=== PATIENT | male | born 1985 | race Caucasian/White ===

== ENCOUNTER 2017-05-07 13:21 | Emergency (ER) | payer BC ==
[2017-05-07 13:24] VITALS: RESP 18; TEMP 99; O2SAT 99
[2017-05-07 13:25] VITALS: BMI 29.6
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
[2017-05-07 14:51] LABS: ALB/GLOB RATIO 1.4 (1.1-1.8); ALKALINE PHOSPHATASE 50 U/L (38-126); ALT/SGPT 64 U/L (7-56); AST/SGOT 34 U/L (17-59); BLOOD UREA NITROGEN 11 mg/dL (7-21); CALCIUM 9.1 mg/dL (8.4-10.5); CARBON DIOXIDE 27 mmol/L (21-33); CHLORIDE 103 mmol/L (98-107); GFR AFRICAN-AMERICAN > 60; GLUCOSE,RANDOM 94 mg/dL (70-110); POTASSIUM 4.1 mmol/L (3.6-5.0); SODIUM 140 mmol/L (132-148); TOTAL PROTEIN 7.3 g/dL (5.8-8.3)
[2017-05-07 15:09] LABS: BASO # 0.03 K/mm3 (0.0-2.0); BASO % 0.4 % (0.0-3.0); EOS # 0.3 (0.0-0.7); EOS % 3.7 % (1.5-5.0); GRAN # 3.98 (1.4-6.5); GRAN % 52.5 % (50.0-68.0); HEMATOCRIT 43.1 % (42.0-52.0); LYMPH # 2.6 (1.2-3.4); LYMPH % 34.3 % (22.0-35.0); MEAN CELL VOLUME 83.7 fl (80.0-105.0); MEAN CORPUSCULAR HEMOGLOBIN 29.7 pg (25.0-35.0); MEAN CORPUSCULAR HGB CONC 35.5 g/dl (31.0-37.0); MEAN PLATELET VOLUME 9.7 fl (7.0-11.0); MONO # 0.7 (0.1-0.6); MONO % 9.1 % (1.0-6.0); WHITE BLOOD COUNT 7.6 10^3/ul (4.5-11.0)
[2017-05-07 15:25] LABS: URINE BILIRUBIN NEGATIVE (NEGATIVE); URINE BLOOD NEGATIVE (NEGATIVE); URINE GLUCOSE (UA) NEGATIVE (NEGATIVE); URINE KETONE NEGATIVE (NEGATIVE); URINE LEUKOCYTE ESTERASE NEGATIVE Leu/uL (NEGATIVE); URINE PROTEIN TRACE mg/dL (<30 mg/dL); URINE UROBILINOGEN 0.2 E.U./dL (<1 E.U./dL)
[2017-05-07 15:28] LABS: URINE COLOR YELLOW (YELLOW)
[2017-05-07 15:29] LABS: URINE APPEARANCE CLEAR (CLEAR)
[2017-05-07 15:44] LABS: URINE RBC 0 - 2 /hpf (0-2)
[2017-05-07 15:45] LABS: URINE BACTERIA FEW (NEG)
--- NOTE | 2017-05-07 16:23 | CARD ---
APPROVED REPORT EKG Measurement Heart [id number] <Conclusion> Normal sinus rhythm
--- NOTE | 2017-05-07 16:24 | RAD ---
HISTORY: pes eval COMPARISON: No prior. FINDINGS: LUNGS: No active pulmonary disease. PLEURA: No significant pleural effusion identified, no pneumothorax apparent. CARDIOVASCULAR: Normal. OSSEOUS STRUCTURES: No significant abnormalities. VISUALIZED UPPER ABDOMEN: Normal. OTHER FINDINGS: None. IMPRESSION: No active disease.
[2017-05-07] MEDS ORDERED: Acetylcysteine 12,000 MG in Dextrose 5% In Water 200 ML IVPB ONE (16:45)
[2017-05-07 17:38] VITALS: BP 142/65; PULSE 71
[2017-05-07] MEDS ORDERED: ACETYLCYSTEINE IV ONE ×2 (18:00→22:00)
[2017-05-07] MEDS ORDERED: WATER IV ONE ×2 (18:00→22:00)
[2017-05-07] MEDS ORDERED: DEXTROSE 5% IV ONE ×2 (18:00→22:00)
--- NOTE | 2017-05-07 20:17 | CP.PCM.PN ---
Subjective - Date & Time of Evaluation Date of Evaluation: 05/07/17 Time of Evaluation: 19:40 - Subjective Subjective: called by monica MALDONADO from ER ,that pt wants to sign AMA. PT has some psych problem but according to monica the pt has been cleared by psych dr macias. on phone, and has the capacity to make decision.pt,s tylenol level is 46.pt states he has the aruna that nothing will happen to happen to him . ER staff and dr Barahona has been trying to convince him for the past 3 hrs to stay, but pt refused to stay.the ER staff also spoke to his on the phone. Objective - Vital Signs/Intake and Output Vital Signs (last 24 hours): Temp Pulse Resp BP Pulse Ox 99 F 71 18 142/65 99 05/07/17 13:22 05/07/17 17:38 05/07/17 17:38 05/07/17 17:38 05/07/17 17:38 - Medications Medications: Current Medications Acetylcysteine 4,000 mg/ (Dextrose) 520 mls @ 130 mls/hr IV .Q4H ONE PRN Reason: Protocol Stop: 05/07/17 21:59 Acetylcysteine 8,000 mg/ (Dextrose) 1,040 mls @ 65 mls/hr IV .Q16H ONE PRN Reason: Protocol Stop: 05/08/17 13:59 - Labs Labs: 05/07/17 14:20 05/07/17 14:20 - Constitutional Appears: No Acute Distress - Head Exam Head Exam: NORMOCEPHALIC - Eye Exam Eye Exam: Normal appearance Pupil Exam: PERRL - ENT Exam ENT Exam: Mucous Membranes Moist - Neck Exam Neck Exam: Full ROM, Normal Inspection - Respiratory Exam Respiratory Exam: NORMAL BREATHING PATTERN - Cardiovascular Exam Cardiovascular Exam: RRR, +S1, +S2 - GI/Abdominal Exam GI & Abdominal Exam: Normal Bowel Sounds - Rectal Exam Rectal Exam: Deferred - Extremities Exam Extremities Exam: Full ROM - Neurological Exam Neurological Exam: Alert, Awake, Oriented x3 - Psychiatric Exam Psychiatric exam: Normal Affect - Skin Skin Exam: Normal Color Assessment and Plan - Assessment and Plan (Free Text) Assessment: AMA. TYLENOL overdose. Plan: risk of liver failure coma and explained to pt.
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
== END 2017-05-07 19:42 | disposition left against medical advice (07) ==
LOC: ED 13:21 → ERH 17:20 → UNDOADMIN 17:20 → ED 19:42
DX: T39.1X1A Poisoning by 4-Aminophenol derivatives, accidental (unintentional), initial encounter (principal)
CPT/HCPCS: 71010; 80053; 81001; 85025; 93005; 99284; G0480